=== PATIENT | female | born 1985 | race American Indian/Alaskan Native ===

== ENCOUNTER 2016-11-26 12:22 | Emergency (ER) | payer MEDICAID ==
[2016-11-26 12:30] VITALS: BP 150/91
[2016-11-26] MEDS ORDERED: Clindamycin HCl 150 MG Cap PO ONE (12:42)
--- NOTE | 2016-11-26 12:48 | EDM.PDOC ---
ED HPI GENERAL MEDICAL PROBLEM - General Chief Complaint: ENT Problem Stated Complaint: RT SIDE OF FACE SWOLLEN, TOOTH Time Seen by Provider: 11/26/16 12:35 Source of Information: Reports: Patient History Limitations: Reports: No Limitations - History of Present Illness INITIAL COMMENTS - FREE TEXT/NARRATIVE: This 31 yo female patient reports to the ED with a 2 day history of right upper dental pain. The patient reports she has not been in to see a dentist, but has noticed increased swelling of the right side of her face over the past 2 days. 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 Right Tooth/Teeth Pain Score (Numeric/FACES): 10 - Related Data Allergies Allergy/AdvReac Type Severity Reaction Status Date / Time No Known Allergies Allergy Verified 11/26/16 12:37 Home Meds: Home Meds Ibuprofen 400 mg PO Q6H 11/26/16 [History] Lisinopril 20 mg PO DAILY 11/26/16 [History] Past Medical History HEENT History: Reports: None Cardiovascular History: Reports: Hypertension Respiratory History: Reports: None Gastrointestinal History: Reports: None Genitourinary History: Reports: None 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 Musculoskeletal History: Reports: None Neurological History: Reports: None Psychiatric History: Reports: None Endocrine/Metabolic History: Reports: None Hematologic History: Reports: None Immunologic History: Reports: None Oncologic (Cancer) History: Reports: None Dermatologic History: Reports: None - Infectious Disease History Infectious Disease History: Reports: None - Past Surgical History Head Surgeries/Procedures: Reports: None Social & Family History - Family History Family Medical History: Noncontributory - Tobacco Use Smoking Status *Q: Current Every Day Smoker Years of Tobacco use: 8 Packs/Tins Daily: 0.5 - Caffeine Use Caffeine Use: Reports: Coffee - Recreational Drug Use Recreational Drug Use: No ED ROS ENT - Review of Systems Review Of Systems: ROS reveals no pertinent complaints other than HPI. ED EXAM, ENT - Physical Exam Exam: See Below Exam Limited By: No Limitations General Appearance: Alert, WD/WN, Mild Distress Eye Exam: Bilateral Eye: EOMI, Normal Inspection, PERRL Ears: Normal External Exam, Normal Canal, Hearing Grossly Normal, Normal TMs Nose: Normal Inspection, Normal Mucousa, No Blood Mouth/Throat: Dental Pain, Dental Tenderness, Gum Swelling Head: Atraumatic, Normocephalic Neck: Normal Inspection, Supple, Non-Tender, Full Range of Motion Respiratory/Chest: No Respiratory Distress, Lungs Clear, Normal Breath Sounds, No Accessory Muscle Use, Chest Non-Tender Cardiovascular: Normal Peripheral Pulses, Regular Rate, Rhythm, No Edema, No Gallop, No JVD, No Murmur, No Rub GI/Abdominal: Normal Bowel Sounds, Soft, Non-Tender, No Organomegaly, No Distention, No Abnormal Bruit, No Mass (Female) Exam: Deferred Rectal (Female) Exam: Deferred Back: Normal Inspection, Full Range of Motion Extremities: Normal Inspection, Normal Range of Motion, Non-Tender, No Pedal Edema, Normal Capillary Refill Neurological: Alert, Oriented, CN II-XII Intact, Normal Cognition, Normal Gait, Normal Reflexes, No Motor/Sensory Deficits Psychiatric: Normal Affect, Normal Mood Skin: Warm, Dry, Intact, Normal Color, No Rash Lymphatic: No Adenopathy Course - Vital Signs Last Recorded V/S: Last Vital Signs Temp 36.6 C 11/26/16 12:30 Pulse 84 11/26/16 12:30 Resp 18 11/26/16 12:30 BP 150/91 H 11/26/16 12:30 Pulse Ox 100 11/26/16 12:30 - Orders/Labs/Meds Meds: Medications Discontinued Medications Generic Name Dose Route Start Last Admin Trade Name Alicia PRN Reason Stop Dose Admin Clindamycin HCl 300 mg 11/26/16 12:42 11/26/16 12:47 Cleocin PO 11/26/16 12:43 300 mg ONETIME ONE Administration Departure - Departure Time of Disposition: 12:45 Disposition: Home, Self-Care 01 Condition: Fair Clinical Impression: Dental abscess, Dental caries extending into dentin - Discharge Information Instructions: Dental Abscess, [id number], Dental Caries, [id number] Forms: ED Department Discharge Care Plan Goals: The patient was advised of the examination results during the visit. The patient was given an oral dose of Clindamycin (300 mg) while in the ED. The patient was discharged with a script for Clindamycin (300 mg) #40 to take 1 by mouth 4 times per day for 10 days. The patient should follow-up with her dentist for continued evaluation and management.
== END 2016-11-26 12:52 | disposition home or self-care (01) ==
LOC: DL.ED 12:22
DX: K04.7 Periapical abscess without sinus (principal); K02.9 Dental caries, unspecified; I10 Essential (primary) hypertension; F17.210 Nicotine dependence, cigarettes, uncomplicated; Z79.899 Other long term (current) drug therapy
CPT/HCPCS: 99282; A9270